=== PATIENT | male | born 1960 | race Caucasian/White ===

== ENCOUNTER 2017-08-10 18:15 | Emergency (ER) | payer BC, OTHER ==
[~2017-08-10] VITALS: Ht 182.9 cm; Wt 106.1 kg
[~2017-08-10 18:15] MED LIST: ADULT LOW DOSE81 MG PO; ALLOPURINOL 30300 M2 PO; ASPIRIN EC81 M1 PO; ASPIRIN325 PO; BACTROBAN CREAM30 G1 TOP; CEFTIN500 MG PO; COLCHICINE 0.60.6 M1 PO; CRESTOR40 MG PO; DARVOCET-N 1001 EAC1 PO; DEEP SEA NASAL44 M1 NS; DIOVAN HCT 1601 EAC1 PO; DIOVAN HCT 1601 EACH PO; IRON325 OR; KEFLEX500 MG PO; LEXAPRO 10 MG T10 MG PO; MUCINEX DM TABL1 TA1 PO; PAROXETINE HCL20 MG PO; PERCOCET 5-3251 EACH PO; SENNA OR; TOPROL XL50 MG PO; TRICOR145 MG PO; VYTORIN 10-401 EACH PO; ZETIA10 MG PO
[2017-08-10] MEDS ORDERED: VALSARTAN-HCTZ1 EAC3 PO (18:28)
[2017-08-10 18:52] LABS: BASOPHILS 1.2 % (0.0-2.0); EOSINOPHILS 3.5 % (0.0-3.0); HEMATOCRIT 37.5 % (42.0-52.0); HEMOGLOBIN 13.2 gm/dL (14.0-18.0); LYMPHOCYTES 24.4 % (24.0-44.0); MCH 34.9 pg (26.0-34.0); MCHC 35.2 g/dL (28.0-37.0); MCV 99.3 fL (80.0-100.0); MONOCYTES 9.1 % (1.0-8.0); PLATELET COUNT 189 thou/uL (150-400); POLYS 61.8 % (36.0-66.0); RBC 3.78 mil/uL (4.50-6.00); RDW 12.8 % (10.5-14.5); WBC 8.1 thou/uL (4.0-11.0)
[2017-08-10 18:55] LABS: MANUAL DIFF NO
[2017-08-10 18:57] LABS: CALCIUM 9.5 mg/dL (8.5-10.1); CREATININE 0.9 mg/dL (0.7-1.3); POTASSIUM 3.5 mmol/L (3.5-5.1)
[2017-08-10 19:03] LABS: ALBUMIN 4.1 g/dL (3.4-5.0); TOTAL BILIRUBIN 0.6 mg/dL (<0.1-1.0)
[2017-08-10] MEDS ORDERED: ANUSOL-HC25 MG RECTAL (19:11)
[2017-08-10] MEDS ORDERED: HYDROCORTISONE30 G9 RECTAL (19:11)
[2017-08-10 19:13] LABS: APTT 23.1 Seconds (24.5-32.8); PROTIME 10.6 Seconds (9.3-11.4)
[2017-08-10 19:33] VITALS: BP 157/94
== END 2017-08-10 19:34 | disposition home or self-care (01) ==
LOC: ER 18:15
PROVIDERS: Emergency Medicine
DX: K62.5 Hemorrhage of anus and rectum (principal); K64.5 Perianal venous thrombosis; I10 Essential (primary) hypertension; F32.9 Major depressive disorder, single episode, unspecified; Z88.0 Allergy status to penicillin; Z90.49 Acquired absence of other specified parts of digestive tract; Z98.890 Other specified postprocedural states